=== PATIENT | female | born 1990 | race Hispanic/Latino ===

== ENCOUNTER 2018-08-20 07:18 | Day surgery (SDC) | payer MEDICAID ==
[2018-08-17 16:01] VITALS: BP 142/74
[2018-08-17 16:08] LABS: BASOPHILS % (AUTO) 0.9 % (0.0-5.0); EOSINOPHILS % (AUTO) 1.9 % (0.0-8.0); HEMATOCRIT 38.4 % (36-48); LYMPHOCYTES % (AUTO) 35.1 % (21.0-51.0); MEAN CORPUSCULAR HGB CONC 35.4 g/dL (32.0-36.0); MEAN CORPUSCULAR VOLUME 84.7 fL (79-99); MONOCYTES % (AUTO) 7.8 % (3.0-13.0); NEUTROPHILS % (AUTO) 54.3 % (40.0-77.0); NUCLEATED RED BLOOD CELLS 0.1 % (0.0-0.19); PLATELET COUNT (AUTO) 233 K/uL (130-400); RED BLOOD CELL COUNT(AUTO) 4.53 MIL/uL (4.00-5.50); RED CELL DISTRIBUTION WIDTH 14.1 % (11.0-15.5); WHITE BLOOD COUNT (AUTO) 8.2 K/uL (4.8-10.8)
[~2018-08-20] VITALS: Ht 162.6 cm; Wt 129.9 kg
[2018-08-20] VITALS (15 sets, daily range): BP systolic 134–156; BP diastolic 76–98
[~2018-08-20 07:18] MED LIST: DIVA500T52 PO; HYDR50CA50 PO; LACTATED RINGERS 1000ML 1,000 ML IV SCH; METO25TA6 PO; OLAN10TA20 PO; OMEP40CA37 PO; PRAZ2CAP2 PO; SERT100T12 PO; TRAZADONE PO
[2018-08-20] MEDS ORDERED: DEXAMETHASONE SOD PHOSPHATE 4 MG/ML 1ML VIAL ONE (07:29)
[2018-08-20] MEDS ORDERED: PROPOFOL 10 MG/ML 20ML VIAL IV ONE ×2 (07:29→08:27)
[2018-08-20] MEDS ORDERED: ONDANSETRON HCL 4 MG/2 ML VIAL ONE (07:29)
[2018-08-20] MEDS ORDERED: LIDOCAINE PF 2% 5ML ABBOJECT ONE (07:29)
[2018-08-20] MEDS ORDERED: MIDAZOLAM HCL 1 MG/ML 2ML VIAL ONE (07:29)
[2018-08-20] MEDS ORDERED: FENTANYL CITRATE PF 50 MCG/1 ML 2ML VIAL ONE (07:30)
[2018-08-20] MEDS ORDERED: PHENYLEPHRINE HCL 10 MG/ML 1ML VIAL IV ONE (07:31)
[2018-08-20] MEDS ORDERED: STRONG IODINE SOLUTION 30ML BOTTLE ONE (08:09)
--- NOTE | 2018-08-20 10:09 | NUR ---
RECEIVE PT RECEIVED FROM PACU VIA STRETCHER AWAKE ALERT ORIENTED X3. PT STABLE. NO COMPLAINTS MADE. OB PAD DRY AND CLEAN, NO BLEEDING OR DISCHARGE NOTED. CALL [facility] WITHIN REACH, WILL CALL FOR MOTHER TO COME IN TO THE ROOM.
--- NOTE | 2018-08-20 10:47 | NUR ---
DISCHARGE PT DISCHARGED VIA WHEELCHAIR WITH MOTHER. PT STABLE. VOIDED WITHOUT ANY PROBLEMS PRIOR TO DISCHARGE. DISCHARGE INSTRUCTIONS GIVEN TO MOTHER AND PT, BOTH VERBALIZED UNDERSTANDING.
== END 2018-08-20 10:47 | disposition home or self-care (01) ==
LOC: DAH 07:18
DX: D06.0 Carcinoma in situ of endocervix (principal); F20.9 Schizophrenia, unspecified; F31.9 Bipolar disorder, unspecified; Z83.3 Family history of diabetes mellitus; Z82.49 Family history of ischemic heart disease and other diseases of the circulatory system; Z79.899 Other long term (current) drug therapy; Z98.890 Other specified postprocedural states; E66.9 Obesity, unspecified
CPT/HCPCS: 36415; 57520; 84703; 85025; 88307; A4351; C1769; J1100; J2001; J2250; J2370; J2405; J2704 ×2; J3010; J7030; J7120

== ENCOUNTER → 2019-12-21 | Outpatient (CLI) | payer MEDICAID ==
[~2019-12-21] MED LIST changes: -LACTATED RINGERS 1000ML 1,000 ML IV SCH; +OMEP40CA13 PO; -OMEP40CA37 PO
== END | disposition home or self-care (01) ==
LOC: SHCH 13:25
PROVIDERS: ATTEND Internal Medicine Cardiovascular Disease
DX: R00.2 Palpitations (principal)
CPT/HCPCS: 93306

== ENCOUNTER 2020-03-10 10:44 | Emergency (ER) | payer MEDICAID ==
[2020-03-10] MEDS ORDERED: METOCLOPRAMIDE 10 MG/2 ML VIAL ONE (11:23)
[2020-03-10] MEDS ORDERED: ACETAMINOPHEN 325 MG TAB ONE (11:24)
[2020-03-10] MEDS ORDERED: SODIUM CHLORIDE 0.9% 1000ML 1,000 ML IV ONE (11:24)
[2020-03-10] MEDS ORDERED: DiphenhydrAMINE HCL 50 MG/ML VIAL ONE (11:24)
== END 2020-03-10 13:01 | disposition home or self-care (01) ==
LOC: EDH 10:44
DX: G43.909 Migraine, unspecified, not intractable, without status migrainosus (principal); F41.9 Anxiety disorder, unspecified; F32.9 Major depressive disorder, single episode, unspecified; F20.9 Schizophrenia, unspecified; I10 Essential (primary) hypertension; Z98.890 Other specified postprocedural states; Z72.0 Tobacco use; Z88.0 Allergy status to penicillin
CPT/HCPCS: 70450; 81025; 96361; 96374; 96375; 99284; J1200; J2765; J7030